=== PATIENT | female | born 1980 | race Hispanic/Latino ===

== ENCOUNTER → 2023-04-30 | Emergency (ER) | payer BC ==
[~2023-04-30] MED LIST: MECLIZINE HCL 12.5 MG TAB ONE; METOCLOPRAMIDE 10 MG/2mL INJ ONE; NA CHLORIDE 0.9% 1,000 ML ONE
[2023-04-30 15:29] LABS: Absolute Lymphocytes (CBC) 0.6 K/uL (0.7-4.9); Hematocrit 37.2 % (36.0-45.0); Lymphocytes % 5.5 % (15.3-44.8); MCV 86.4 fL (80-100); MPV 8.7 fL (7.6-11.3); Platelets 291 thou/uL (152-406); RBC Red Blood Cell Count 4.31 M/uL (3.86-4.86)
[2023-04-30 15:48] LABS: Albumin 3.8 g/dL (3.4-5.0); Bilirubin Total 0.4 mg/dL (0.2-1.0); Potassium 3.6 mEq/L (3.5-5.1); Protein, Total 8.1 g/dL (6.4-8.2); Troponin High Sensitivity 3.4 pg/mL (<58.9)
[2023-04-30 16:43] LABS: Specific Gravity 1.017 (1.005-1.030); Urine Bacteria None Seen /HPF (<20); Urine Bilirubin NEGATIVE (Negative); Urine Blood Negative (Negative); Urine Clarity Clear (Clear); Urine Color Light-Yellow (Yellow); Urine Glucose NEGATIVE (Negative); Urine Mucus Slight /HPF (None Seen); Urine Protein NEGATIVE (Negative); Urine RBC None Seen /HPF (None Seen); Urine Urobilinogen Normal (Normal); Urine pH 6.5 (5.0-7.0)
--- NOTE | 2023-04-30 18:41 | RAD REPORT ---
EXAM DESCRIPTION: CT - Head Brain Wo Cont - 04/30/2023 6:35 pm CLINICAL HISTORY: DIZZINESS Headache, drowsiness, dizziness COMPARISON: <Comparisons> TECHNIQUE: All CT scans are performed using dose optimization technique as appropriate and may inclu de automated exposure control or mA/KV adjustment according to patient size. FINDINGS: No intracranial hemorrhage, hydrocephalus or extra-axial fluid collection.No areas of brai n edema or evidence of midline shift. The paranasal sinuses and mastoids are clear. The calvarium is intact. IMPRESSION: No acute intracranial abnormality.
--- NOTE | 2023-04-30 18:44 | RAD REPORT ---
EXAM DESCRIPTION: CT - Head angio - 04/30/2023 6:36 pm CLINICAL HISTORY: DIZZINESS Headache, drowsiness, dizziness COMPARISON: <Comparisons> TECHNIQUE: CT angiography of the head was performed with MIPs. All CT scans are performed using dose optimization technique as appropriate and may include automated exposure control or mA/KV adjustment according to patient size. FINDINGS: No evidence of large vessel occlusion. No evidence of aneurysm is detected. No flow-limiti ng stenosis or vascular malformation identified. Antegrade flow is seen in the vertebral arteries. The vertebral arteries are codominant. The visualized dural venous sinuses are patent. IMPRESSION: No significant flow abnormality is detected.
--- NOTE | 2023-04-30 18:46 | RAD REPORT ---
EXAM DESCRIPTION: CT - Neck Angio - 04/30/2023 6:36 pm CLINICAL HISTORY: dizziness Headache, drowsiness, dizziness COMPARISON: <Comparisons> TECHNIQUE: CT angiography of the neck vessels was performed with MIPs. All CT scans are performed using dose optimization technique as appropriate and may include automated exposure control or mA/KV adjustment according to patient size. 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 No significant flow abnormality is seen of the common carotid bilaterally. There is mild soft plaque involving both proximal internal carotid arteries, greater on the left. Thi s results in less than 50% narrowing bilaterally based on NASCET criteria. Normal flow is seen within both vertebral arteries. IMPRESSION: Soft plaquing is present in both proximal internal carotid arteries, mild, greater on th e left. No evidence of significant stenosis is seen. NASCET criteria used. Mild 0-49% stenosis Moderate 50-69% stenosis Severe 70-99% stenosis
[2023-04-30 18:54] LABS: Blood Morphology Comment NOT SEEN (NOT SEEN); Platelet Estimate ADEQ; White Blood Cell Scan OK (OK)
--- NOTE | 2023-04-30 19:07 | EDPHYS ---
Physician Documentation [facility] Name: Lorna Ng Age: 43 yrs Sex: Female : 1980 Arrival Date: 04/30/2023 Time: 14:04 Bed 6 Private MD: ED Physician Harley Winston HPI: 04/30 15:06 This 43 yrs old Female presents to ER via Wheelchair with complaints of ec2 Dizziness, Nausea, Vertigo. 15:06 Patient arrives today for evaluation of dizziness. Patient reports that she feels some ec2 dizziness which she describes as a room spinning sensation. Patient reports some associated nausea and vomiting. Patient reports no previous similar episodes. Reports a history of hypertension, denies any history of arrhythmias or strokes or ACS. Reports some associated nausea and vomiting.She states that she went to bed normal and woke up this morning with a sensation of vertigo and nausea. . 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 - Social history:: Smoking status: Patient denies any tobacco usage or history of. ROS: 15:06 Constitutional: as per hpi ec2 Exam: 15:06 Constitutional: GEN: NAD Head: atraumatic Eyes: EOMI Ears: External ears are ec2 normal. CV: regular rate LUNGS: no respiratory distress ABD: non-distended SKIN: no evidence of rashes MSK: no evidence of trauma NEURO: moves all extremities equally, cranial nerves II through XII intact, strength intact in all 4 extremities, normal [id number], no pronator drift Vital Signs: 14:52 BP 143 / 84; Pulse 71; Resp 16 S; Temp 98.3(TE); Pulse Ox 100% on R/A; Weight 65.77 kg aa5 (R); Height 5 ft. 0 in. (R); 18:52 BP 126 / 77; Pulse 74; Resp 16; Pulse Ox 98% on R/A; iw 14:52 Body Mass Index 28.32 (65.77 kg, 152.4 cm) aa5 MDM: 15:03 Patient medically screened. ec2 15:06 Data reviewed: vital signs. ED course: Patient arrives today for evaluation of ec2 dizziness. Examination remarkable for well-appearing nontoxic individual is otherwise in no acute distress with a reassuring neurologic examination. Will obtain lab work to evaluate for electrolyte disturbances, anemia, dehydration. Additionally considering arrhythmia. Will give the patient Reglan, meclizine and crystalloid. Currently suspect peripheral vertigo causing her symptoms. Low suspicion for central process given her intact neurologic examination. Regardless patient is outside of any actionable window such as TNK as the patient woke up with the symptoms. . 15:48 ED course: CBC is reassuring. . ec2 15:49 ED course: Metabolic profile and troponin are nonactionable.. ec2 17:23 ED course: On reassessment patient with marked improvement in her symptoms however ec2 still does have some dizziness. Will obtain CT imaging of the head with CT angio of the head and neck. Will evaluate for intracranial masses as well as arterial pathology such as dissection.. 18:48 ED course: CT of the head shows no acute intracranial abnormality, CT angio of the head ec2 and neck shows no vascular issue. EKG obtained, independently reviewed and interpreted by me, shows normal sinus rhythm, rate of 79, no acute ST segment elevations, intervals are nonconcerning. . 19:05 ED course: I used shared decision-making with the patient regarding possible admission ec2 for further MRI workup and possible stroke versus expectant management with meclizine for peripheral vertigo. After prolonged discussion, ultimately we decided we will attempt home trial with meclizine. Instructed on strict return precautions. Return precautions given. . 04/30 15:04 Order name: CBC with Diff; Complete Time: 19:05 ec2 04/30 15:04 Order name: CMP; Complete Time: 15:49 ec2 04/30 15:04 Order name: Troponin High Sensitivity; Complete Time: 15:49 ec2 04/30 15:04 Order name: UAM; Complete Time: 16:46 ec2 04/30 15:04 Order name: Test, Urine; Complete Time: 16:46 ec2 04/30 18:54 Order name: CBC Smear Scan; Complete Time: 19:05 EDMS 04/30 17:23 Order name: CT Head Brain wo Cont; Complete Time: 18:47 ec2 04/30 17:23 Order name: CT Head Angio; Complete Time: 18:47 ec2 04/30 17:23 Order name: CT Neck Angio; Complete Time: 18:47 ec2 04/30 15:04 Order name: EKG; Complete Time: 15:05 ec2 04/30 15:04 Order name: EKG - Nurse/Tech; Complete Time: 18:52 ec2 Administered Medications: 16:10 Drug: NS 0.9% IV 1000 ml IV at 1 bolus Per protocol; 1000 mL bolus Route: IV; Rate: 1 iw bolus; Site: right antecubital; 16:10 Drug: Meclizine PO 50 mg PO once Route: PO; iw 16:10 Drug: metoCLOPramide IVP 10 mg IVP once; over 1 to 2 minutes Route: IVP; Site: right iw antecubital; Disposition Summary: 04/30/23 19:06 Discharge Ordered Notes: Location: Home ec2 Condition: Stable ec2 Diagnosis - Other peripheral vertigo ec2 Followup: ec2 - With: Private Physician - When: - Reason: Recheck today's complaints Discharge Instructions: - Discharge Summary Sheet ec2 - Vertigo, [id number]-Sqmk ec2 Forms: - Medication Reconciliation Form ec2 - Thank You Letter ec2 - Antibiotic Education ec2 - Prescription Opioid Use ec2 - Patient Portal Instructions ec2 - Leadership Thank You Letter ec2 Prescriptions: - Meclizine 25 mg Oral Tablet - take 1 tablet ORAL route every 8 hours As needed; 30 tablet; Refills: 0, ec2 Product Selection Permitted Signatures: Dispatcher [employer] Marquita Ley RN RN iw Ashly Flanagan RN RN aa5 Harley Winston MD MD ec2 Corrections: (The following items were deleted from the chart) 15:08 15:06 Patient arrives today for evaluation of dizziness. Patient reports that she feels ec2 some dizziness which she describes as a room spinning sensation. Patient reports some associated nausea and vomiting. Patient reports no previous similar episodes. Reports a history of hypertension, denies any history of arrhythmias or strokes or ACS. Reports some associated nausea and vomiting.. ec2
--- NOTE | 2023-04-30 19:07 | ER ---
Nurse's Notes [facility] Name: Lorna Ng Age: 43 yrs Sex: Female : 1980 Arrival Date: 04/30/2023 Time: 14:04 Bed 6 Private MD: Diagnosis: Other peripheral vertigo Presentation: 04/30 14:52 Chief complaint: Patient states: "I woke up today feeling really dizzy like the room aa5 was spinning". Pt states "I almost passed out and I threw up". Coronavirus screen: nausea, vomiting. Ebola Screen: Patient denies travel to an Ebola-affected area in the 21 days before illness onset. Initial Sepsis Screen: Does the patient meet any 2 criteria? No. Patient's initial sepsis screen is negative. Does the patient have a suspected source of infection? No. Patient's initial sepsis screen is negative. Risk Assessment: Do you want to hurt yourself or someone else? Patient reports no desire to harm self or others. Onset of symptoms was April 30, 2023. 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 - Social history:: Smoking status: Patient denies any tobacco usage or history of. Screenin:26 [facility] ED Fall Risk Assessment (Adult) Score/Fall Risk Level 0 - 2 = Low Risk. Abuse iw screen: Denies threats or abuse. Denies injuries from another. Nutritional screening: No deficits noted. Tuberculosis screening: No symptoms or risk factors identified. Assessment: 17:00 General: Appears in no apparent distress. Behavior is calm, cooperative. Pain: iw Complains of pain in head. Neuro: Level of Consciousness is awake, alert, obeys commands, Oriented to person, place, time, situation, Moves all extremities. Full function Reports dizziness. Respiratory: Respiratory effort is even, unlabored, Respiratory pattern is regular, symmetrical. GI: Abdomen is non-distended. Derm: Skin is intact, is healthy with good turgor. Musculoskeletal: Range of motion: intact in all extremities. 18:26 Reassessment: Patient appears in no apparent distress at this time. Patient and/or iw family updated on plan of care and expected duration. Pain level reassessed. Patient is alert, oriented x 3, equal unlabored respirations, skin warm/dry/pink. Vital Signs: 14:52 BP 143 / 84; Pulse 71; Resp 16 S; Temp 98.3(TE); Pulse Ox 100% on R/A; Weight 65.77 kg aa5 (R); Height 5 ft. 0 in. (R); 18:52 BP 126 / 77; Pulse 74; Resp 16; Pulse Ox 98% on R/A; iw 14:52 Body Mass Index 28.32 (65.77 kg, 152.4 cm) aa5 ED Course: 14:07 Patient arrived in ED. rg4 14:08 Harley Winston MD is Attending Physician. ec2 14:52 Arm band placed on. aa5 14:53 Triage completed. aa5 15:30 Inserted saline lock: 20 gauge in right antecubital area, using aseptic technique. iw 15:58 Marquita Schmidt, RN is Primary Nurse. iw 18:26 Patient has correct armband on for positive identification. Provided Education on: . iw 18:37 CT Head Brain wo Cont In Process Unspecified. EDMS 18:37 CT Head Angio In Process Unspecified. EDMS 18:38 CT Neck Angio In Process Unspecified. EDMS 19:16 No provider procedures requiring assistance completed. IV discontinued, intact, iw bleeding controlled, No redness/swelling at site. Pressure dressing applied. Administered Medications: 16:10 Drug: NS 0.9% IV 1000 ml IV at 1 bolus Per protocol; 1000 mL bolus Route: IV; Rate: 1 iw bolus; Site: right antecubital; 16:10 Drug: Meclizine PO 50 mg PO once Route: PO; iw 16:10 Drug: metoCLOPramide IVP 10 mg IVP once; over 1 to 2 minutes Route: IVP; Site: right iw antecubital; Medication: 19:16 VIS not applicable for this client. iw Outcome: 19:06 Discharge ordered by . ec2 19:16 Discharged to home ambulatory, iw 19:16 Condition: good 19:16 Discharge instructions given to patient, Instructed on discharge instructions, follow up and referral plans. medication usage, Demonstrated understanding of instructions, follow-up care, medications, Prescriptions given X 1, 19:16 Patient left the ED. iw Signatures: Dispatcher [employer] Marquita Ley RN RN iw Calderon, Audri, RN RN aa5 Mariah Coon rg4 Harley Winston MD MD ec2 Corrections: (The following items were deleted from the chart) 16:40 16:40 Meclizine PO 50 mg PO iw iw 18:53 15:00 Inserted saline lock: 20 gauge in right antecubital area, using aseptic iw technique. iw
[2023-04-30 21:36] VITALS: BP 126/77; TEMP 98.3; O2SAT 98
--- NOTE | 2023-05-03 17:06 | EKG ---
Test Date: 2023-04-30 Test Time: 18:44:03 [employer] Counselor: JYOTI MEASUREMENT RESULTS: Intervals: Rate: 79 GA: 142 QRSD: 76 QT: 392 QTc: 449 Belt: P: 35 GA: 142 QRS: 78 T: 45 INTERPRETIVE STATEMENTS: Normal sinus rhythm Normal ECG No previous ECG available for comparison Electronically Signed On 05-03-23 16:59:33 CHIEF RADIATION THERAPIST by Meño Pizarro
== END ==
LOC: ER 14:04
DX: H81.399 Other peripheral vertigo, unspecified ear (principal); I10 Essential (primary) hypertension
CPT/HCPCS: 93005; 85025; 81001; 36415; 81025; 84484; 80053; 70450; 70496; 70498; 96374; 99284; Q9967; J8597; J2765; J7030